=== PATIENT | female | born 2000 | race Two or more races ===

== ENCOUNTER 2018-07-13 23:21 | Emergency (ER) | payer OTHER ==
[2018-07-14] MEDS ORDERED: IPRATROPIUM/ALBUTEROL 3 ML DEYVIAL IH ONE (00:41)
--- NOTE | 2018-07-14 01:31 | EDPHY ---
H & P Stated Complaint: cough Time Seen by Provider: 07/13/18 23:45 HPI/ROS: Chief complaint: Cough History of present illness: This is an otherwise healthy 18-year-old female who presents to the emergency department for a cough. Patient states she was outside in the cold this evening. She states the cold irritated her lungs and she has started to cough. Mild irritation associated with this. She denies fevers or cold symptoms, she denies trouble breathing, she denies trauma. Review of systems: A 10 point review of systems was obtained and other than described above was negative - Personal History LMP (Females 10-55): 1-7 Days Ago Current Tetanus/Diphtheria Vaccine: Yes Current Tetanus Diphtheria and Acellular Pertussis (TDAP): Yes - Medical/Surgical History Hx Asthma: No Hx Chronic Respiratory Disease: No Hx Diabetes: No Hx Cardiac Disease: No Hx Renal Disease: No Hx Cirrhosis: No Hx Alcoholism: No Hx HIV/AIDS: No Hx Splenectomy or Spleen Trauma: No Other PMH: denies - Social History Smoking Status: Never smoked - Physical Exam Exam: General Appearance: Alert, nontoxic. Eyes: Pupils equal and round no pallor or injection. ENT, Mouth: Mucous membranes moist. Respiratory: There is no use of accessory muscles or evidence of respiratory distress. Lungs are clear to auscultation bilaterally. Cardiovascular: Regular rate and rhythm. Neurological: Alert. Strength and sensation intact and symmetrical. Skin: Warm and dry, no rashes. Musculoskeletal: Neck is supple non tender. Extremities are symmetrical, full range of motion. Psychiatric: Patient is oriented X 3, there is no agitation. Constitutional: Initial Vital Signs Temperature (C) 36.5 C 07/13/18 23:22 Heart Rate 104 H 07/13/18 23:22 Respiratory Rate 16 07/13/18 23:22 Blood Pressure 122/84 H 07/13/18 23:22 O2 Sat (%) 97 07/13/18 23:22 O2 Delivery Mode Room Air Allergies/Adverse Reactions: No Known Allergies Allergy (Unverified 07/13/18 23:26) Home Medications: Medication Instructions Recorded NK [No Known Home Meds] 07/13/18 Medical Decision Making ED Course/Re-evaluation: Patient seen under the supervision of my secondary supervising physician Dr. Derek Goodwin. Patient presents with a cough that started this evening while outside in the cold. She is nontoxic. Vital signs are stable. Physical exam including lung sounds are unremarkable. I suspect airway spasms from exposure to the cold. She is given a nebulizer with resolution of symptoms. Given she is asymptomatic I do not believe imaging studies or further workup is warranted. She is discharged home. Home care is discussed. She is asked to follow up with a primary care doctor on Monday for recheck. Strict return precautions are given. The patient voiced understanding and agreement with plan. Differential Diagnosis: Included but not limited to airway spasms, infectious pathology, unlikely pneumothorax or pulmonary embolism - Data Points Medications Given: Discontinued Medications Albuterol/Ipratropium (Duoneb) 3 ml IH EDNOW ONE Stop: 07/14/18 00:42 Last Admin: 07/14/18 00:55 Dose: 3 ml Departure - Departure Disposition: Home, Routine, Self-Care Clinical Impression: Cough Condition: Good Instructions: Acute Cough (ED) Additional Instructions: Follow-up with a primary care doctor on Monday for recheck If symptoms worsen or new symptoms develop return to the emergency room for recheck Referrals: NONE *PRIMARY CARE P,. [Primary Care Provider] - As per Instructions [facility],. [Clinic] - As per Instructions
[2018-07-14 02:06] VITALS: BP 118/70
== END 2018-07-14 02:06 | disposition home or self-care (01) ==
DX: R05 Cough (principal)

== ENCOUNTER 2018-10-25 19:08 | Emergency (ER) | payer OTHER ==
--- NOTE | 2018-10-25 19:49 | EDPHY ---
H & P Stated Complaint: THROAT PAIN COUGH FEVER 1 DAY Time Seen by Provider: 10/25/18 19:41 HPI/ROS: CHIEF COMPLAINT: Sore throat, fever HISTORY OF PRESENT ILLNESS: Patient is a 18 female who comes to the emergency department complaining of sore throat and fever for the last 24 hr. No body aches. No rash. Dry nonproductive cough. No shortness of breath. No headache. No ear pain. No sinus congestion. No GI symptoms. She reports a fever of 40 C earlier today that has resolved with Tylenol. She did not get a flu vaccine this year. Severity: Moderate Modifying factors: None REVIEW OF SYSTEMS: Constitutional: See HPI EENTM: denies: blurred vision, double vision, nose congestion Respiratory: See HPI denies: shortness of breath Cardiac: denies: chest pain, irregular heart rate, lightheadedness, palpitations Gastrointestinal/Abdominal: denies: abdominal pain, diarrhea, nausea, vomiting, blood streaked stools Genitourinary: denies: dysuria, frequency, hematuria, pain Musculoskeletal: denies: joint pain, muscle pain Skin: denies: lesions, rash, jaundice, bruising Neurological: denies: headache, numbness, paresthesia, tingling, dizziness, weakness Hematologic/Lymphatic: denies: blood clots, easy bleeding, easy bruising Immunologic/allergic: denies: HIV/AIDS, transplant 10 systems reviewed and negative except as noted EXAM: GENERAL: Well-appearing, well-nourished and in no acute distress. HEAD: Atraumatic, normocephalic. EYES: Pupils equal round and reactive to light, extraocular movements intact, sclera anicteric, conjunctiva are normal. ENT: TMs normal, nares patent, oropharynx with minimal erythema without exudates. Moist mucous membranes. NECK: Normal range of motion, supple without lymphadenopathy or JVD. LUNGS: Breath sounds clear to auscultation bilaterally and equal. No wheezes rales or rhonchi. HEART: Regular rate and rhythm without murmurs, rubs or gallops. ABDOMEN: Soft, nontender, normoactive bowel sounds. No guarding, no rebound. No masses appreciated. BACK: No CVA tenderness, no spinal tenderness, step-offs or deformities EXTREMITIES: Normal range of motion, no pitting or edema. No clubbing or cyanosis. NEUROLOGICAL: Cranial nerves II through XII grossly intact. Normal speech, normal gait. 5/5 strength, normal movement in all extremities, normal sensation , normal reflexes PSYCH: Normal mood, normal affect. SKIN: Warm, dry, normal turgor, no visible rashes or lesions. Source: Patient Exam Limitations: No limitations - Personal History LMP (Females 10-55): Now Current Tetanus/Diphtheria Vaccine: Yes Current Tetanus Diphtheria and Acellular Pertussis (TDAP): Yes - Medical/Surgical History Hx Asthma: No Hx Chronic Respiratory Disease: No Hx Diabetes: No Hx Cardiac Disease: No Hx Renal Disease: No Hx Cirrhosis: No Hx Alcoholism: No Hx HIV/AIDS: No Hx Splenectomy or Spleen Trauma: No Other PMH: denies - Social History Smoking Status: Never smoked Alcohol Use: Sober Constitutional: Initial Vital Signs Temperature (C) 37.0 C 10/25/18 19:18 Heart Rate 105 H 10/25/18 19:18 Respiratory Rate 18 10/25/18 19:18 Blood Pressure 127/92 H 10/25/18 19:18 O2 Sat (%) 96 10/25/18 19:18 O2 Delivery Mode Room Air Allergies/Adverse Reactions: No Known Allergies Allergy (Unverified 10/25/18 19:21) Home Medications: Medication Instructions Recorded Oseltamivir Phosphate [Tamiflu 75 75 mg PO BID #10 cap 10/25/18 mg (*)] Medical Decision Making ED Course/Re-evaluation: We discussed the patient's test results. Will start on Tamiflu. Discussed expected course. Discussed rest, hydration and antipyretics. Discussed indications for return to the emergency department. Differential Diagnosis: Partial list of the Differential diagnosis considered include but were not limited to; influenza, strep throat, viral pharyngitis and although unlikely based on the history and physical exam, I also considered meningitis, sepsis, pneumonia, abscess. I discussed these differential diagnoses and the plan with the patient as well as the usual and expected course. The patient understands that the diagnosis is provisional and that in medicine we are not always correct and that further workup is often warranted. Usual and customary warnings were given. All of the patient's questions were answered. The patient was instructed to return to the emergency department should the symptoms at all worsen or return, otherwise to followup with the physician as we discussed. - Data Points Laboratory Results: 10/25/18 Unknown Group A Strep DNA NEGATIVE (NEGATIVE) Medications Given: Discontinued Medications Oseltamivir Phosphate (Tamiflu) 75 mg PO EDNOW ONE Stop: 10/25/18 20:52 Last Admin: 10/25/18 20:55 Dose: 75 mg Departure - Departure Disposition: Home, Routine, Self-Care Clinical Impression: Influenza A Condition: Fair Instructions: Influenza (ED) Referrals: NONE *PRIMARY CARE P,. [Primary Care Provider] - As per Instructions Ranjan Perez MD [Medical Doctor] - 3-4 days, if not improved Prescriptions: Oseltamivir Phosphate [Tamiflu 75 mg (*)] 75 mg PO BID #10 cap
[2018-10-25] MEDS ORDERED: OSELTAMIVIR PHOSPHATE 75 MG CAP PO ONE (20:51)
[2018-10-25 21:04] VITALS: BP 132/74
== END 2018-10-25 21:04 | disposition home or self-care (01) ==
DX: J10.1 Influenza due to other identified influenza virus with other respiratory manifestations (principal)

== ENCOUNTER 2019-03-29 04:26 | Emergency (ER) | payer OTHER | END 2019-03-29 05:28 | disposition home or self-care (01) ==